=== PATIENT | female | born 1950 | race Caucasian/White ===

== ENCOUNTER → 2022-03-17 | Day surgery (SDC) | payer MEDICARE, OTHER ==
[~2022-03-17] VITALS: Ht 167.6 cm; Wt 81.6 kg
[~2022-03-17] MED LIST: BENADRYL25 M1 PO; CRANBERRY200 MG PO; DULCOLAX5 MG PO; ECHINACEA380 MG PO; ELAVIL25 MG PO; FLUOXETINE HCL40 MG PO; HYDROCHLOROTHIA50 MG PO; KRILL OIL 1,001 EAC1 PO; LORAZEPAM 0.5M0.5 MG PO; MONTELUKAST SOD10 MG PO; N-ACETYL-L-CYS600 MG PO; OCUVITE WITH L1 EACH PO; OMEPRAZOLE40 MG PO; OXYBUTYNIN CHLOR5 MG PO; SYNTHROID75 MC1 PO; TRELEGY ELLIPT1 EACH INH; VITAMIN D3125 MC1 PO; ZYRTEC10 M3 PO
[2022-03-17 09:58] LABS: HCT 40.9 % (37.0-47.0); HGB 14.1 g/dl (12.5-16.0); MCH 29.7 pg (25.0-31.0); MCHC 34.5 g/dL (32.0-36.0); MCV 86.1 fL (78.0-100.0); MPV 10.6 fL (6.0-9.5); RBC 4.75 M/uL (4.20-5.40); WBC 7.3 K/uL (4.0-10.5)
[2022-03-17 10:11] LABS: ALBUMIN 3.6 g/dL (3.4-5.0); BILIRUBIN - TOTAL 0.6 mg/dL (0.2-1.0); BUN/CREAT RATIO (CALC) 15.5 RATIO; CREATININE 1.1 mg/dL (0.51-0.95); GLOBULIN (CALCULATION) 3.9 g/dL; POTASSIUM 3.7 mmol/L (3.5-5.1); TOTAL PROTEIN 7.5 g/dL (6.4-8.2)
== END | disposition home or self-care (01) ==
LOC: FAS 08:12
PROVIDERS: Surgery
DX: K92.1 Melena (principal); K58.9 Irritable bowel syndrome, unspecified; K56.609 Unspecified intestinal obstruction, unspecified as to partial versus complete obstruction
CPT/HCPCS: 36415; 80053; J1610; J2704; J7120